=== PATIENT | male | born 1960 | race African-American/Black ===

== ENCOUNTER 2016-06-08 06:01 | Day surgery (SDC) | payer MEDICARE, BC ==
[~2016-06-08] VITALS: Ht 165.1 cm; Wt 89.8 kg
[~2016-06-08 06:01] MED LIST: ALLO100T PO; CALA180T PO; CARD8TAB6 PO; FOLITAB6 PO; HYDR10TA23 PO; LORTA5 PO; THIA100T PO
[2016-06-08] MEDS ORDERED: SODIUM BICARBONATE 100 MEQ in D5W 1000 ML IV SCH (06:45)
[2016-06-08] MEDS ORDERED: CALC667T PO (07:11)
[2016-06-08] MEDS ORDERED: FURO40TA PO (07:11)
[2016-06-08] MEDS ORDERED: CLAR10CA3 PO (07:11)
[2016-06-08] MEDS ORDERED: CARV6.252 PO (07:11)
[2016-06-08 07:14] VITALS: BP 125/82; PULSE 78; RESP 16; TEMP 98.1; O2SAT 98
[2016-06-08 07:20] LABS: AUTOMATED NEUTROPHIL # 6.5 TH/MM3 (1.8-7.7); BASOPHIL # 0.1 TH/MM3 (0-0.2); EOSINOPHIL # 0.2 TH/MM3 (0-0.4); EOSINOPHIL % 2.5 % (0.0-4.0); HEMO FLAGS DIFF FINAL; LYMPH % 18.9 % (9.0-44.0); LYMPHOCYTE # 1.8 TH/MM3 (1.0-4.8); MEAN CELL VOLUME 89.7 FL (80.0-100.0); MEAN CORPUSCULAR HEMOGLOBIN 30.1 PG (27.0-34.0); MEAN CORPUSCULAR HGB CONC 33.5 % (32.0-36.0); MONO % 8.9 % (0.0-8.0); NEUT % 68.7 % (16.0-70.0); PLATELET COUNT 198 TH/MM3 (150-450); RED BLOOD COUNT 4.57 MIL/MM3 (4.50-5.90); RED CELL DISTRIBUTION WIDTH 14.5 % (11.6-17.2); WHITE BLOOD COUNT 9.5 TH/MM3 (4.0-11.0)
[2016-06-08 07:27] LABS: PROTHROMBIN TIME - PATIENT 10.9 SEC (9.8-11.6)
[2016-06-08 07:31] LABS: BICARBONATE 22.5 MEQ/L (21.0-32.0); POTASSIUM 4.3 MEQ/L (3.5-5.1)
[2016-06-08] MEDS ORDERED: HEPARIN-NS/PF INJ 500 ML ONE (10:23)
[2016-06-08] MEDS ORDERED: MIDAZOLAM HCL 5 MG/5 ML VIAL ONE (10:24)
[2016-06-08] MEDS ORDERED: HEPARIN SODIUM - IV 10,000 UNITS/10 ML VIAL ONE (10:24)
[2016-06-08] MEDS ORDERED: NITROGLYCERIN INJ 5 ML ONE (10:24)
[2016-06-08] MEDS ORDERED: IOHEXOL 350 MG/ML 100 ML BTL (for Cath Lab) OTHER ONE (12:44)
--- NOTE | 2016-07-22 18:54 | MR ---
cc: SANTI DAVIS DO DATE: 06/08/2016. PREOPERATIVE DIAGNOSIS: Peripheral artery disease. POSTOPERATIVE DIAGNOSIS: Peripheral artery disease. OPERATIVE PROCEDURE PERFORMED: Aortogram and selective left lower extremity arteriogram. SURGEON: Santi Davis DO. IV FLUIDS: Estimated to be at least one liter of normal saline. ESTIMATED BLOOD LOSS: Minimal. URINE OUTPUT: N/A. COMPLICATIONS: None. DISPOSITION: To the post-anesthesia care unit DESCRIPTION OF THE PROCEDURE IN DETAIL: The patient's bilateral groins were prepped and draped in the sterile fashion after being under moderate sedation. I got access to the right common femoral artery using duplex ultrasound with a 21-gauge needle after anesthetizing the right groin with 1% lidocaine. I exchanged over a thin wire for a 4-Liberian micropuncture catheter and then exchanged for a 5-Liberian sheath. A stiff angled Glidewire was advanced and an AP aortogram was shot through an Omni flush catheter in the abdominal aorta. After I shot my aortogram, I changed the angle of the image intensifier and performed pelvic arteriograms as I pulled my catheter around to the distal abdominal aorta. At the end of the procedure, I removed the catheter and sheath over a wire. It should be noted that I did select out the left external iliac artery to shoot the selective left lower extremity arteriogram before that. FINDINGS: At my access point, the catheter was in the common femoral artery above the origin of the profunda and superficial femoral artery and all three appeared to be patent. The abdominal aorta was patent. The bilateral common internal and external iliac arteries were patent. It should be noted that the iliac vessels were somewhat tortuous. The left common femoral and profunda femoral arteries are widely patent. The patient's left SFA was open. There was at least a moderate severe stenosis. There was a short segment in the left SFA. The left popliteal artery was open. The patient's main runoff to the left lower extremity was through the posterior tibial artery. Due to the time lapse of contrast making its way to the left lower extremity, it was difficult to determine if there was a blockage distally in the other tibial vessels but all three appears to take of at their origin without any compromise. Went back to the popliteal artery. There may have been a mild narrowing of the left popliteal artery versus some aneurysmal change of the above-knee popliteal artery. SUMMARY: In summary, the patient had what appeared to be appropriate arterial inflow with some compromised outflow in the SFA and the left lower extremity with mild disease in the left popliteal artery and the main runoff across the level of the ankle being the posterior tibial artery. DO VIN Mercado/NASIM /6:21 PM /6:38 PM
== END 2016-06-08 14:14 | disposition home or self-care (01) ==
LOC: HDOC 06:01 → HDIC 06:01 → HDOC 14:14
PROVIDERS: ATTEND Surgery
DX: I70.212 Atherosclerosis of native arteries of extremities with intermittent claudication, left leg (principal); N18.6 End stage renal disease; I12.0 Hypertensive chronic kidney disease with stage 5 chronic kidney disease or end stage renal disease; E11.9 Type 2 diabetes mellitus without complications; K21.9 Gastro-esophageal reflux disease without esophagitis; J44.9 Chronic obstructive pulmonary disease, unspecified
CPT/HCPCS: 36246; 75625; 75710; 80048; 85025; 85610; C1760; C1769; C1893; G0269; J1644; J2250; J3010; Q9967